=== PATIENT | female | born 1960 | race Caucasian/White ===

== ENCOUNTER → 2017-05-19 | Day surgery (SDC) | payer OTHER ==
[2017-05-13 10:41] VITALS: Ht 162.6 cm; Wt 150.0 kg
[~2017-05-19] VITALS: Ht 162.6 cm; Wt 150.0 kg
[~2017-05-19] MED LIST: CALC600T9 PO; CHOL20009 PO; CYCL10TA6 PO; DSWCR TOP; DULO-24 PO; ETOD500T95 PO; EYE VISION PO; FURO-85 PO; GABA-113 PO; HYDR200T5 PO; LEVO25TA PO; LIDOCAINE HCL 2% 2 ML VIAL (20MG/ML) ONE; MULT-506 PO; NYSP EXT; PANT40TA PO; PENI500T2 PO; PROPOFOL IV EMULSION 10 MG/ML 20 ML VIAL IV ONE; RANI300T2 PO; SODIUM CHLORIDE 0.9% 500ML 500 ML IV ONE; TRAM-10 PO; WLLSR/150 PO
--- NOTE | 2017-05-19 10:40 | Endo History and Physical ---
History & Physical Date of Service: May 19, 2017. Chief Complaint: epigastric pain Referring Physician: Dr. Roberts History of Present Illness epig pain x 1 month Past Medical History Arthritis, Reflux, Thrombophlebitis, Other, Depression Past Surgical History Hx Cardiac Surgery: No Hx Internal Defibrillator: No Hx Pacemaker: No Hx Abdominal Surgery: Yes (HYSTERECTOMY) Hx of Implantable Prosthesis: No Hx Post-Op Nausea and Vomiting: No Hx Cancer Surgery: No Hx Thoracic Surgery: No Hx Orthopedic: Yes (EXC BUNION RIGHT TOE, LEFT ELBOW REPAIR, RT/LEFT TKA) Hx Urinary Tract Surgery: No Family History None Social History Smoking Status: Never Smoker Hx Substance Use: No Hx Alcohol Use: No Allergies Coded Allergies: Naproxen (Verified Adverse Reaction, Unknown, HEADACHE, DRY HEAVES, ) Sulfa Antibiotics (Verified Adverse Reaction, Unknown, GASTRIC UPSET, 05/13) Current Medications Reported Home Medications Medications Dose Route/Sig Max Daily Dose Days Date Category Cymbalta (Duloxetine HCl) 20 Mg Cap 1 Cap PO BID 30 05/19/17 Reported [Eye Cap Vision Cap] 1 Cap PO QAM 05/13/17 Reported Vitamin D (Cholecalciferol) 2,000 Unit Tab 1 Tab PO QAM 05/13/17 Reported Calcium + D (Calcium Carbonate-Vitamin D) 1 Tab Tab 1 Tab PO BID 05/13/17 Reported Multivitamin (Multivitamins) Tab 1 Tab PO QPM 05/13/17 Reported Lasix (Furosemide) 20 Mg Tab 20 Mg PO QAM 05/13/17 Reported Veetids (Penicillin V Potassium) 500 Mg Tab 500 Mg PO DIRECTED PRN 05/13/17 Reported Desowen 0.05% (Desonide) 60 Gm Cr 1 Appln TOP BID PRN 05/13/17 Reported Wellbutrin Sr (Bupropion Hcl) 150 Mg Tabcr 150 Mg PO QPM 05/13/17 Reported Nystop (Nystatin) 45 Appln/15 Gm Powd 1 Dose EXT DIRECTED PRN 05/13/17 Reported Plaquenil (Hydroxychloroquine Sulfate) 200 Mg Tab 200 Mg PO BID 05/13/17 Reported Synthroid (Levothyroxine Sodium) 25 Mcg Tab 25 Mcg PO QAM 05/13/17 Reported Neurontin (Gabapentin) 300 Mg Cap 2 Cap PO BID 1/25/18 Reported Protonix (Pantoprazole Sodium) 40 Mg Tab 40 Mg PO QAM 05/13/17 Reported Flexeril (Cyclobenzaprine Hcl) 10 Mg Tab 10 Mg PO HS 05/13/17 Reported Etodolac 500 Mg Tab 0.5 Tab PO BID 05/13/17 Reported Zantac (Ranitidine HCl) 300 Mg Tab 300 Mg PO HS 05/13/17 Reported Ultram (Tramadol HCl) 50 Mg Tab 100 Mg PO Q8H PRN 05/13/17 Reported Vital Signs Weight (Kilograms): 150 Height (Feet): 5 Height (Inches): 4 Date Time Temp Pulse Resp B/P (MAP) Pulse Ox O2 Delivery O2 Flow Rate FiO2 05/19/17 10:36 36.8 103 22 126/88 (101) 97 Room Air Physical Exam General Appearance: WD/WN, no apparent distress Assessment and Plan EGD today
--- NOTE | 2017-05-19 11:07 | Discharge Instructions ---
Endoscopy Patient Instructions Date / Procedure(s) Performed May 19, 2017. EGD Allergy Information Coded Allergies: Naproxen (Verified Adverse Reaction, Unknown, HEADACHE, DRY HEAVES, ) Sulfa Antibiotics (Verified Adverse Reaction, Unknown, GASTRIC UPSET, 05/13) Discharge Date / Findings May 19, 2017. normal EGD Medication Instructions Stopped Medication(s): Etodolac and multivitamin Restart Stopped Medication(s): OK to resume home medications as above Provider Instructions Activity Restrictions - No exercising or heavy lifting for 24 hours. - Do not drink alcohol the day of the procedure. - Do not drive a car or operate machinery until the day after the procedure. - Do not make any important decisions or sign important papers in 24 hours after the procedure. Following Day: - Return to full activity which may include returning to work/school. Diet Start your diet with liquids and light foods (jello, soup, juice, toast). Then eat your usual diet if not nauseated. Treatment For Common After Affects For mild abdominal pain, bloating, or excessive gas: - Rest - Eat lightly - Lie on right side Follow-Up Information Follow-up with Larissa Gaviria as scheduled Anesthesia Information What You Should Know You have had a procedure that required some medicine to reduce anxiety and discomfort. This treatment is called moderate sedation. After receiving the treatment, you may be sleepy, but you will be able to breathe on your own. The effects of the treatment may last for several hours. Follow these instructions along with Activity/Diet recommendations noted above: * Do NOT do anything where dizziness or clumsiness would be dangerous. * Rest quietly at home today, then you can be up and about tomorrow. * Have a responsible person stay with you the rest of today. * You may have had an I.V. today. If so, you may take the dressing off later today. Recommendations Call your doctor if: * Trouble breathing * Continuous vomiting for more than 24 hours * Temperature above 101 degrees * Severe abdominal pain or bloating * Pain not relieved by pain medicine ordered * There is increased drainage or redness from any incision * A large amount of rectal bleeding greater than 2-3 tablespoons. (If you had a polyp/s removed or have hemorrhoids, a small amount of blood - from the rectum is to be expected.) * You have any unanswered questions or concerns. IN THE EVENT OF A SERIOUS EMERGENCY, GO TO THE NEAREST EMERGENCY ROOM Your discharge instructions were prepared by provider Nereida Ang. Patient Instructions Signature Page Hortencia Urbina Patient (or Guardian) Signature/Date: I have read and understand the instructions given to me by my caregivers. Caregiver/RN/Doctor Signature/Date: The above-named patient and/or guardian has received patient instructions on this date. + Original Patient Signature Page (only) stays with chart. Please make copy for patient.
--- NOTE | 2017-05-19 11:07 | GI REPORT ---
Procedure Date: 05/19/2017 10:42 AM Procedure: Upper GI endoscopy Indications: Epigastric abdominal pain Medicines: Propofol per Anesthesia Complications: No immediate complications. Estimated blood loss: None. Estimated Blood Loss: Estimated blood loss: none. Procedure: Pre-Anesthesia Assessment: - Prior to the procedure, a History and Physical was performed, and patient medications, allergies and sensitivities were reviewed. The patient's tolerance of previous anesthesia was reviewed. - The risks and benefits of the procedure and the sedation options and risks were discussed with the patient. All questions were answered and informed consent was obtained. - Patient identification and proposed procedure were verified prior to the procedure by the physician and the nurse. The procedure was verified in the pre-procedure area in the procedure room. - Mental Status Examination: alert and oriented. Airway Examination: normal oropharyngeal airway and neck mobility. Respiratory Examination: clear to auscultation. CV Examination: normal. Abdominal Examination: bowel sounds present, abdomen soft and non-tender, no masses or organomegaly noted. - ASA Grade Assessment: III - A patient with severe systemic disease. After obtaining informed consent, the endoscope was passed under direct vision. Throughout the procedure, the patient's blood pressure, pulse, and oxygen saturations were monitored continuously. The scope was introduced through the mouth, and advanced to the second part of duodenum. The upper GI endoscopy was accomplished without difficulty. The patient tolerated the procedure well. Findings: The esophagus was normal. The stomach was normal. The examined duodenum was normal. Impression: - Normal esophagus. - Normal stomach. - Normal examined duodenum. - No specimens collected. Recommendation: - Follow an antireflux regimen. - Continue present medications. - Return to referring physician as previously scheduled. - Discharge patient to home. Nereida Ang D.O. Nereida Ang DO 05/19/2017 11:06:12 AM This report has been signed electronically. Note Initiated On: 05/19/2017 10:42 AM I attest to the content of the Intraoperative Record and orders documented therein, exceptions below
--- NOTE | 2017-05-19 11:39 | Anesthesiology Progress Note ---
Anesthesia Post Op Note Date & Time May 19, 2017 at 11:38 Vital Signs Pain Intensity: 0 Vital Signs Past 12 Hours Date Time Temp Pulse Resp B/P (MAP) Pulse Ox O2 Delivery O2 Flow Rate FiO2 05/19/17 11:25 86 18 142/83 (102) 96 Room Air 05/19/17 11:10 36.8 90 16 145/64 (91) 98 Room Air 05/19/17 10:36 36.8 103 22 126/88 (101) 97 Room Air Notes Mental Status: alert / awake / arousable, participated in evaluation Pt Amnestic to Procedure: Yes Nausea / Vomiting: adequately controlled Pain: adequately controlled Airway Patency, RR, SpO2: stable & adequate BP & HR: stable & adequate Hydration State: stable & adequate Anesthetic Complications: no major complications apparent
[2017-05-19 11:40] VITALS: BP 136/95; PULSE 84; O2SAT 97
== END | disposition home or self-care (01) ==
LOC: C.GI 09:44
PROVIDERS: ATTEND Internal Medicine
DX: R10.13 Epigastric pain (principal); K21.9 Gastro-esophageal reflux disease without esophagitis; E66.9 Obesity, unspecified; M19.90 Unspecified osteoarthritis, unspecified site; F32.9 Major depressive disorder, single episode, unspecified; Z86.72 Personal history of thrombophlebitis; Z90.710 Acquired absence of both cervix and uterus; Z96.653 Presence of artificial knee joint, bilateral